=== PATIENT | male | born 1945 | race Caucasian/White ===

== ENCOUNTER → 2024-01-16 09:28 | Outpatient (REF) | payer MEDICARE, OTHER, SELFPAY ==
[2024-01-16 10:21] LABS: % Eosinophils 3.2 % (0-6); % Immature Granulocytes 0.2 % (0-0.5); % Lymphocytes 33.3 % (20.5-51.1); % Monocytes 7.3 % (1.7-9.3); Absolute Basophils 0.1 10^3/uL (0-0.2); Absolute Eosinophils 0.2 10^3/uL (0-0.7); Absolute Lymphocytes 1.7 10^3/uL (1.2-3.4); Absolute Monocytes 0.4 10^3/uL (0.1-0.6); Absolute Neutrophils 2.8 10^3/uL (1.4-6.5); Hemoglobin 9.4 g/dL (13.0-18.0); Mean Corp Hgb Conc. 34.8 g/dL (33.0-37.0); Mean Corpuscular Hgb 32.2 pg (27.0-31.0); Mean Corpuscular Volume 92.5 fL (80.0-94.0); Mean Platelet Volume 9.4 fL (7.4-10.4); Nucleated Red Blood Cells % 0 % (-); Platelet Count 338 10^3/uL (130-400); Red Blood Cell Count 2.92 10^6/uL (4.70-6.10); Red Cell Dist. Width 16.5 % (11.5-14.5)
[2024-01-16 10:48] LABS: ALT (SGPT) 24 U/L (0-50); AST (SGOT) 37 U/L (17-59); Albumin 2.7 g/dl (3.5-5.0); Alkaline Phosphatase 156 U/L (38-126); Blood Urea Nitrogen 15 mg/dl (9-20); Calcium 8.6 mg/dl (8.4-10.2); Carbon Dioxide 26 mmol/L (22-30); Chloride 101 mmol/L (98-107); Glucose 83 mg/dl (70-99); Potassium 2.9 mmol/L (3.5-5.1); Sodium 136 mmol/L (135-145); Total Bilirubin 1.7 mg/dl (0.2-1.3); Total Protein 5.7 g/dl (6.3-8.2); eGFR > 60.00
== END ==
LOC: RAD 09:28
PROVIDERS: ATTENDING PHYSICIAN Internal Medicine
DX: R13.10 Dysphagia, unspecified (principal); I10 Essential (primary) hypertension; I25.10 Atherosclerotic heart disease of native coronary artery without angina pectoris; I77.9 Disorder of arteries and arterioles, unspecified; R79.89 Other specified abnormal findings of blood chemistry
CPT/HCPCS: 36415; 74230; 80053; 85025; 92611

== ENCOUNTER 2024-01-30 13:25 | Inpatient (IN) | payer MEDICARE, OTHER, SELFPAY ==
[2024-01-30] VITALS (10 sets, daily range): BP systolic 107–124; BP diastolic 53–69; BMI 19.3; BMI 16.9
--- NOTE | 2024-01-30 09:14 | ED.GENMED ---
History of Present Illness
General
Chief Complaint: Dehydration Symptoms
Time Seen by Provider: 01/30/24 09:14
Travel History
Have you had any contact with someone who has COVID-19?: No
Do you have any symptoms of coronavirus? Fever > 100 degrees, chills, cough, shortness of breath, sore throat, loss of taste or smell, muscle aches, or headache?: No
History of Present Illness
History of Present Illness:
HPI: Family brought in patient for further evaluation with concerns for dehydration. He has had poor p.o. intake over the last several days. He did have a GI evaluation including a swallow evaluation in which there were no restrictions suggested.
He denies any pain. However, the patient has a history of dementia and is a very limited historian
EXAM:
GENERAL: Appears in no distress but he appears somewhat dehydrated
HEENT: Dry oral mucosa
CARDIOVASCULAR: Regular rate and rhythm, small deformity noted to the anterior chest wall at midline scar
PULMONARY: No respiratory distress, breathing is nonlabored, equal and clear breath sounds
ABDOMEN: Soft and nontender with no peritoneal signs, heme-negative stool but very limited amount of stools obtained
NEUROLOGIC: The patient has evidence of dementia, not oriented to month or place, strength is equal in all extremities
EXTREMITIES: Moves all extremities equally, no tenderness, no edema
PYSCHIATRIC: Very limited historian, poor insight and judgment
ED COURSE:
9:25 AM: I initially evaluated patient
NUMBER AND COMPLEXITY OF PROBLEMS ADDRESSED AT THE ENCOUNTER
� Chronic conditions affecting care: Dementia, high blood pressure, hyperlipidemia, CAD with CABG in 2015, GERD
� Acute Exacerbation and/or Progression of Chronic Illness: This is an acute problem
� Differential Diagnosis includes: Failure to thrive, MICHELLE, dehydration, electrolyte abnormality
AMOUNT AND/OR COMPLEXITY OF DATA TO BE REVIEWED AND ANALYZED
� I performed an independent evaluation of and my interpretation is:
EKG:
CT: Noncontrast CT of abdomen/pelvis is unremarkable
X-rays:
Laboratory Studies: White count normal at 7.8, hemoglobin 11.1 which is higher than prior but suspect hemoconcentrated, sodium is elevated at 156, BUN is 42 and creatinine is 1.9�this is acute
Other:
� Review of other/old records: I reviewed lab work from 01/16/2024 that showed a hemoglobin of 9.4 down from 12.7 in October 2023
� Clinical information was obtained by an independent historian: I spoke to family� and daughter at bedside
� Prescriptions/Medications Considered but not given:
� Further testing considered but not performed:
RISK OF COMPLICATIONS AND/OR MORBIDITY OR MORTALITY OF PATIENT MANAGEMENT
� Social determinants of health affecting care:
� Discussion with other providers: Hospitalist for admission 11:20 AM
� Escalation of care including admission/observation vs risk of discharge considered: The patient was given IV fluids. Even before his fluids were started, his blood pressure normalized and his heart rate was normal in the 80s.
The patient has history of dementia and is a very limited historian. He appears somewhat dehydrated. The patient has evidence of MICHELLE.
Past History
Past History
ED Past Medical History: GERD, HTN and Hypercholesterolemia
ED Past Surgical History: Cardiac
Social History
Tobacco: Non-smoker
Alcohol: Daily (4 beers/day)
Drug: None
Personal:
Living: with family
Employment: Retired
Phy Exam
Physical Exam
Physical Exam:
See HPI
Course
Orders/Labs/Results
Orders:
Orders
01/30/24 09:16
0.9% Sodium Chloride 500 ml [Nss] 500 ml IV BOLUS
01/30/24 09:29
0.9% Sodium Chloride 1000 ml [Nss] 1,000 ml IV BOLUS
01/30/24 09:32
Add On- LAB Urgent
Tests Added?: iron panel, ferritin
01/30/24 09:34
Complete Blood Count/With Diff Urgent
Comprehensive Metabolic Panel Urgent
Ferritin Urgent
Comment: ADD ON
Iron Urgent
Comment: ADD ON
01/30/24 11:12
CT Abd/pelvis Wo Iv Cont Urgent
Comment:
Reason For Exam: poor po intake; dementia; MICHELLE; cannot malcolm po
01/30/24 12:00
Dextrose 5%/0.45%Sodchl 500 ml [D5/0.45%NaCl] 500 ml IV 125 mls/hr
Abnormal Lab Results
01/30/24
09:34
RBC 3.46 L 10^6/uL
(4.70-6.10)
Hgb 11.1 L g/dL
(13.0-18.0)
Hct 34.2 L %
(39.0-52.0)
MCV 98.8 H fL
(80.0-94.0)
MCH 32.1 H pg
(27.0-31.0)
MCHC 32.5 L g/dL
(33.0-37.0)
RDW 17.5 H %
(11.5-14.5)
MPV 10.7 H fL
(7.4-10.4)
Sodium 156 H mmol/L
(135-145)
Chloride 126 H mmol/L
(98-107)
BUN 42 H mg/dl
(9-20)
Creatinine 1.9 H mg/dL
(0.7-1.3)
Glucose 103 H mg/dl
(70-99)
Ferritin 569.0 H ng/ml
(17.9-464.0)
Total Bilirubin 1.9 H mg/dl
(0.2-1.3)
ALT 57 H U/L
(0-50)
Alkaline Phosphatase 185 H U/L
(38-126)
Albumin 3.3 L g/dl
(3.5-5.0)
01/30/24 09:34
01/30/24 09:34
Vital Signs
Initial and Last Documented VS:
Initial Vital Signs
Temp Pulse BP Pulse Ox
97.4 F 107 107/68 91
01/30/24 09:04 01/30/24 09:04 01/30/24 09:04 01/30/24 09:04
Last Documented Vital Signs
Temp Pulse Resp BP Pulse Ox
97.4 F 63 15 117/53 91
01/30/24 09:04 01/30/24 11:15 01/30/24 11:15 01/30/24 11:00 01/30/24 09:04
*Critical Care Note
Total Time (30-74mins, 75-104mins- exclusive of procedures): Not Applicable
ED Attending Note
-
Portions of this chart may have been created with voice recognition software.� Occasional wrong word or��sound alike� substitutions may have occurred due to the inherent limitations of voice recognition software.
Discharge Plan
Departure
Patient Disposition: Admit
Date of Disposition: 01/30/24
Time of Disposition: 11:20
Presentation/result/management discussed w/ accepting MD/DO: Hospitalist
Discharge Problem:
MICHELLE (acute kidney injury)
Prescriptions:
No Action
aspirin 81 MG tablet,delayed release (DR/EC)
81 mg PO DAILY
allopurinol 300 MG tablet
300 mg PO DAILY
atorvastatin 40 MG tablet
80 mg PO DAILY
ammonium lactate 12 % Lotion
1 applic TOPICAL DAILY
potassium chloride 40 mEq/15 mL Liquid
40 meq PO DAILY
Referrals:
Rasta Sloan MD [Family Provider] -
Interventions
Interventions:
*Risk Screen - Suicide Last Done: 01/30/24 09:25
*General Assessment Last Done: 01/30/24 09:25
*Neglect/Abuse Screening Last Done: 01/30/24 09:25
ED- Fall Risk Assessment Last Done: 01/30/24 09:25
*ED COVID-19 Vaccine History Last Done: 01/30/24 09:09
ED- Cardiac Assessment Last Done: 01/30/24 09:25
ED- Neurological Assessment Last Done: 01/30/24 09:25
ED- Pulmonary Assessment Last Done: 01/30/24 09:25
[2024-01-30] MEDS: NSS 1000 IV (09:33)
[2024-01-30 09:51] LABS: % Basophils 0.9 % (0-2); % Eosinophils 0.5 % (0-6); % Immature Granulocytes 0.4 % (0-0.5); % Lymphocytes 26.4 % (20.5-51.1); % Monocytes 5.8 % (1.7-9.3); Absolute Basophils 0.1 10^3/uL (0-0.2); Absolute Lymphocytes 2.1 10^3/uL (1.2-3.4); Absolute Monocytes 0.5 10^3/uL (0.1-0.6); Absolute Neutrophils 5.1 10^3/uL (1.4-6.5); Hematocrit 34.2 % (39.0-52.0); Hemoglobin 11.1 g/dL (13.0-18.0); Mean Corp Hgb Conc. 32.5 g/dL (33.0-37.0); Mean Corpuscular Hgb 32.1 pg (27.0-31.0); Mean Corpuscular Volume 98.8 fL (80.0-94.0); Mean Platelet Volume 10.7 fL (7.4-10.4); Nucleated Red Blood Cells % 0 % (-); Platelet Count 242 10^3/uL (130-400); Red Blood Cell Count 3.46 10^6/uL (4.70-6.10); Red Cell Dist. Width 17.5 % (11.5-14.5); White Blood Cell Count 7.8 10^3/uL (4.8-10.8)
[2024-01-30 10:10] LABS: ALT (SGPT) 57 U/L (0-50); AST (SGOT) 47 U/L (17-59); Albumin 3.3 g/dl (3.5-5.0); Alkaline Phosphatase 185 U/L (38-126); Blood Urea Nitrogen 42 mg/dl (9-20); Calcium 9.3 mg/dl (8.4-10.2); Carbon Dioxide 24 mmol/L (22-30); Chloride 126 mmol/L (98-107); Estimated Creatinine Clearance 24 ml/min; Glucose 103 mg/dl (70-99); Iron 114 ug/dl (49-181); Potassium 3.9 mmol/L (3.5-5.1); Sodium 156 mmol/L (135-145); Total Bilirubin 1.9 mg/dl (0.2-1.3); Total Protein 6.6 g/dl (6.3-8.2); eGFR 35.22
--- NOTE | 2024-01-30 11:20 | EDRN ---
Family informed this RN pt had a US scheduled for today though unable to go as is here. This RN spoke to Dr. Rosa who said that he was ordering a CT of abdomen w/out contrast which will give more info than US r/t pt's results so far. This
RN informed family that pt to go to CT. Dr. Rosa was in thereafter to speak w/ family.
[2024-01-30] MEDS: D5/0.45%NACL 500 IV (11:51)
--- NOTE | 2024-01-30 12:46 | EDRN ---
Brenda CANNON was in to see pt for hospitalist group.
--- NOTE | 2024-01-30 12:46 | EDRN ---
Naren Bhakta PA in to see pt at this time.
--- NOTE | 2024-01-30 13:09 | EDRN ---
Dr. Alberto in room w/ pt and family.
--- NOTE | 2024-01-30 13:09 | HPS.HSE ---
Family Physician
-
Family Physician: Rasta Sloan
Chief Complaint
-
Poor oral intake and weakness
History of Present Illness
Patient is a 78 y/o male with PMH of dementia, HTN, and CAD w/ CABG in 2014 who presents with family c/o worsening PO intake x 2 days. Patient is a limited historian, and daughter provided history. Daughter states that the patient has had
weight loss and decreasing appetite for the past 6 months and has not had anything to eat or drink in the last two days. He has had minimal stool and urine output the last 2 days. She says he does not complain of abdominal pain, nausea, vomiting, or
diarrhea. and daughter say that he is usually mobile around the house without use of a cane or walker but patient has spent most of his time resting in bed the past few days. Patient has a home visit visit scheduled with palliative care for
this week.
Medical History
Past Medical History
Past Medical History: Reports Other
Additional Past Medical History:
Coronary Artery Disease
Essential Hypertension
Hyperlipidemia
Dementia
GERD
Gout
Past Surgical History: Reports Other
Additional Past Surgical History:
CABG
Appendectomy
Social History
Tobacco: Non-smoker
Living: With Family
Family History
Family History: Not pertinent
Allergies / Home Medications
Allergies reflects when Allergies were last updated in [employer] [facility].
Home Medications with original date entered in [facility]
Allergy/Medication List:
Allergies
Allergy/AdvReac Type Severity Reaction Status Date / Time
No Known Allergies Allergy Verified 01/30/24 09:12
Home Medications
allopurinol 300 mg tablet 300 mg PO DAILY Gout 08/27/14
aspirin 81 mg tablet,delayed release 81 mg PO DAILY Blood clot prevention/tx 08/27/14
atorvastatin 40 mg tablet 80 mg PO DAILY High cholesterol 07/15/20
ammonium lactate 12 % lotion 1 applic topical DAILY apply to B/L feet 01/30/24
potassium chloride 40 mEq/15 mL oral liquid 40 meq PO DAILY 01/30/24
Review of Systems
-
Unable to obtain full review of systems at this time due to: Dementia
Physical Exam
Vital Signs
Vital Signs
Temp Pulse Resp BP Pulse Ox
97.4 F 63 15 124/58 100
01/30/24 09:04 01/30/24 13:00 01/30/24 13:00 01/30/24 13:00 01/30/24 13:00
Physical Exam
General: Comfortable, Conversant, Appears Chronically Ill and Cachectic
HEENT: NormoCephalic and Anicteric
Respiratory: Clear and Non Labored Respirations
Cardiac: S1/S2 and Regular Rhythm
GI: Soft, Non Tender and Non Distended
Rectal: Deferred by Provider
Musculoskeletal: No Clubbing, No Cyanosis and No Edema
Skin: Warm and Dry
Neuro: Awake, Alert and Nonfocal/grossly intact
Laboratory Results
-
01/30/24 09:34
01/30/24 09:34
Laboratory Results
Total Bilirubin 1.9 mg/dl (0.2-1.3) H 01/30/24 09:34
AST 47 U/L (17-59) 01/30/24 09:34
ALT 57 U/L (0-50) H 01/30/24 09:34
Alkaline Phosphatase 185 U/L (38-126) H 01/30/24 09:34
Data Reviewed
-
CT Scan: Report Reviewed by me
Lab Data: Labs Reviewed by me
Impression/Plan
-
Acute Kidney Injury with Hypernatremia
-Patient with progressive decline over last 6 months, but much worse over past 1-2 weeks
-Calculated Free Water Deficit 3.2L
-Continue IVFs
-Monitor creatinine and sodium level
-Family open to discussions for possible hospice
Elevated LFTs
-CT scan with no acute pathology
-Hold statin
-Recheck in AM
-Consider further imaging if not improving
Dementia
-Family states no prior dementia work-up
-Check Head CT, vitamin b12 and folic acid
-Monitor for mood/behavior changes
Coronary Artery Disease
-Continue aspirin
Hyperlipidemia
-Hold due to elevated LFTs
DVT proph: SCDs
Code Status: DNR
[2024-01-30 15:05] LABS: Folate 2.1 ng/ml (2.76-20); Vitamin B12 737 pg/ml (239-931)
--- NOTE | 2024-01-30 16:19 | PTOTSP ---
ST Dysphagia Evaluation
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 Cog-linguistic deficits; baseline dementia
Pt received awake/alert oriented to self. Family spouse and daughter present at the bedside. HOB raised upright for PO trials of puree and thin liquids. Demo adequate oral access/containment, mild-moderately prolonged bolus manipulation and bolus
was orally cleared. Declined trials after x3 tsp of puree. Thin liquids by straw sip swallow appears min delayed. 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
report on 01/16 for further details).
Recommend
1. Continue Soft/bite-size solids (L6) and thin liquids
2. Aspiration and LATA/reflux precautions
3. Small bites, moisten solids with gravy/sauce, small/single sips and slow rate
4. Whole/single pills with sips of water or placed in apple sauce
5. AIRPLANE DISPATCHER following; consider palliative guided conversation with pt/family re: goals of care
[2024-01-30] MEDS: D5/0.45%NACL 1000 IV ×2 (16:50→23:04)
[2024-01-31 06:00] VITALS: BMI 16.8
[2024-01-31 06:56] LABS: Hematocrit 28.1 % (39.0-52.0); Hemoglobin 9.1 g/dL (13.0-18.0); Mean Corp Hgb Conc. 32.4 g/dL (33.0-37.0); Mean Corpuscular Hgb 31.8 pg (27.0-31.0); Mean Corpuscular Volume 98.3 fL (80.0-94.0); Mean Platelet Volume 10.2 fL (7.4-10.4); Platelet Count 168 10^3/uL (130-400); Red Blood Cell Count 2.86 10^6/uL (4.70-6.10); White Blood Cell Count 6.8 10^3/uL (4.8-10.8)
[2024-01-31 07:18] LABS: ALT (SGPT) 37 U/L (0-50); AST (SGOT) 31 U/L (17-59); Albumin 2.5 g/dl (3.5-5.0); Alkaline Phosphatase 124 U/L (38-126); Blood Urea Nitrogen 37 mg/dl (9-20); Calcium 8.8 mg/dl (8.4-10.2); Carbon Dioxide 26 mmol/L (22-30); Chloride 124 mmol/L (98-107); Estimated Creatinine Clearance 30 ml/min; Glucose 111 mg/dl (70-99); Magnesium 2.4 mg/dl (1.6-2.3); Potassium 3.4 mmol/L (3.5-5.1); Sodium 156 mmol/L (135-145); Total Bilirubin 1.2 mg/dl (0.2-1.3); Total Protein 5.5 g/dl (6.3-8.2); eGFR 50.81
[2024-01-31] MEDS: ASPIR LOW (ENTERIC COATED) 81 MG PO (07:39)
[2024-01-31] MEDS: D5/0.45%NACL 1000 IV ×2 (07:39→22:32)
[2024-01-31] MEDS: KCL ELIXIR 40 MEQ PO (07:39)
[2024-01-31 07:44] VITALS: BP 123/53
[2024-01-31 07:47] LABS: TSH Reflex To Free T4 1.94 uIU/ml (0.47-4.68)
[2024-01-31 10:10] VITALS: BP 112/60; PULSE 69
[2024-01-31 10:30] VITALS: BP 112/60; PULSE 69; O2SAT 100
[2024-01-31] MEDS: KCL 40 MEQ PO (11:35)
--- NOTE | 2024-01-31 11:56 | W.PN.HOSP.TC ---
Today's Communication/Plan
-
Continue with IV fluids
Follow BMP
Check bladder scan
Check urine analysis
Assessment / Plan
Assessment / Plan
Acute Kidney Injury with Hypernatremia
-Patient with progressive decline over last 6 months, but much worse over past 1-2 weeks
-Calculated Free Water Deficit 3.2L
-Continue IVFs
-Monitor creatinine and sodium level
-Family open to discussions for possible hospice
-Improving creatinine. Continue with the fluids and follow sodium.
-Continue with modified diet per speech.
-Await urine analysis to rule out any UTI accounting for his change in status. Chest x-ray without evidence of pneumonia. CT head without evidence of acute intracranial abnormality.
-If all turnout to be negative for any acute medical issues this may be just progression of his dementia and will address goals of care
Elevated LFTs
-CT scan with no acute pathology
-Hold statin
-Normalized with hydration unclear if secondary to any ischemic issue.
Dementia
-Family states no prior dementia work-up
-Check vitamin b12 and folic acid
-Monitor for mood/behavior changes
Coronary Artery Disease
-Continue aspirin
Hyperlipidemia
-Hold due to elevated LFTs
DVT proph: SCDs
Code Status: DNR
Discussed with at bedside and updated current clinical and treatment plan
Anticipated Discharge: 24 - 48 hours
Subjective/Interval History
-
Date of Service: January 31, 2024
Sitting in the chair.
Voicing no specific complaints.
Denies nausea or vomiting. Still no appetite.
at bedside brings to my attention that he seems to be bothered with upper right lip pain. He is waiting to see his dentist for removal of all teeth and denture fixtures.
Overnight had urinary retention requiring straight cath.
Objective Data
-
Labs:
Laboratory Results
03/05/24
06:33
WBC 6.8
Hgb 9.1 L
Hct 28.1 L
Plt Count 168 D
Sodium 156 H
Potassium 3.4 L
Chloride 124 H
Carbon Dioxide 26
BUN 37 H
Creatinine 1.4 H
Glucose 111 H
Calcium 8.8
Total Bilirubin 1.2
AST 31
ALT 37
Alkaline Phosphatase 124
Vital Signs:
Vital Signs
Temp Pulse Resp BP Pulse Ox
97.3 F 57 12 123/53 100
01/31/24 07:44 01/31/24 07:44 01/31/24 07:44 01/31/24 07:44 01/31/24 07:44
I&O
01/30/24 01/31/24 02/01/24
06:59 06:59 06:59
Intake Total 810 / 810
Output Total 601 / 601
Balance 209 / 209
Review of Systems
-
Constitutional: Denies Fever
EENT: Denies Sore Throat
Respiratory: Denies Trouble Breathing
Cardiac: Denies Chest Pain
Neuro: Denies Dizzy
Physical Exam
-
General: No Apparent Distress
HEENT: Moist Mucous Membranes and Other (single right upper remnant tooth but no tenderness on its manipulation ;no lip swelling )
Respiratory: Clear to Auscultation
Cardiac: Regular Rhythm and S1/S2
GI: Soft and Nontender
Neuro: Awake, Alert and Oriented
Psych: Calm and Confused; Negative Agitated
Data Reviewed
-
Labs: Labs Reviewed by me
--- NOTE | 2024-01-31 12:40 | CM ---
Reviewed chart, met with patient's family who was at bedside to obtain information for assessment. Patient's stated that patient lives with her in a split level home with no steps to enter. She described patient as dependent on her for all his
ADLs, personal care, dressing and bathing as well as toileting. She does the bow stapler, cooks, cleans and does the laundry. Both of her children live close and are supportive and patient's stated that she has good neighbors that assist
her with what she needs.
Patient has a grab bar in the shower but mainly spongebathes.
Patient's is driving patient to all of his appointments and she does all of the shopping.
Patient has had VN in the past through [facility] and if indicated again would select . He is current with Palliative Care through and patient's confirmed that she advised them of the hospitalization.
Patient has never been to a SNF and they do not want for him to transfer to one.
If indicated patient's stated that she would like for VN.
Patient has a prescription plan and uses the [facility] on [address]
His PCP is Dr. Rasta Sloan.
Plan: Case management will continue to follow and assist with discharge planning. Patient's and daughter would like for patient to return home when medically cleared with Palliative and VN if indicated.
[2024-01-31 14:37] VITALS: BP 110/55
[2024-01-31 15:04] LABS: Urine Albumin Trace (Neg - Trace); Urine Bilirubin 1+ (Negative); Urine Character Clear (Clear); Urine Color Yellow; Urine Glucose Negative (Negative); Urine Ketone Trace (Negative); Urine Leukocyte Trace (Negative); Urine Nitrite Negative (Negative); Urine Occult Blood Negative (Negative); Urine Specific Gravity 1.025 (<1.030); Urine Urobilinogen 1+ (Neg - 1+)
[2024-01-31 15:06] VITALS: BMI 16.8
[2024-01-31 15:26] LABS: Urine Red Blood Cell 0-2 /HPF (0-2)
[2024-01-31 15:27] LABS: Urine Bacteria Many (Negative)
[2024-01-31 23:03] VITALS: BP 127/62
--- NOTE | 2024-02-01 01:47 | PTCARENOTE ---
Pt became agitated and trying to leave the room. FRANCISCO Bill notified and orders for stat one time IM Zyprexa added. Upon admission pt now asleep. Zyprexa not given. Med sitter in place. Will continue plan of care.
[2024-02-01 06:00] VITALS: BMI 18.3
[2024-02-01] MEDS: D5/0.45%NACL 1000 IV ×2 (06:30→09:03)
[2024-02-01 07:00] VITALS: BP 123/61
[2024-02-01] MEDS: ASPIR LOW (ENTERIC COATED) 81 MG PO (08:59)
[2024-02-01] MEDS: KCL ELIXIR 40 MEQ PO (08:59)
[2024-02-01 09:35] LABS: Hematocrit 28.8 % (39.0-52.0); Hemoglobin 9.3 g/dL (13.0-18.0); Mean Corp Hgb Conc. 32.3 g/dL (33.0-37.0); Mean Corpuscular Hgb 31.8 pg (27.0-31.0); Mean Corpuscular Volume 98.6 fL (80.0-94.0); Mean Platelet Volume 10.6 fL (7.4-10.4); Platelet Count 149 10^3/uL (130-400); Red Blood Cell Count 2.92 10^6/uL (4.70-6.10); Red Cell Dist. Width 16.6 % (11.5-14.5); White Blood Cell Count 6.6 10^3/uL (4.8-10.8)
--- NOTE | 2024-02-01 10:27 | CHAP ---
Msgr. Josse Archer of [facility] in [place] anointed Mr. Pham and gave him Holy Communion. Time uncertain.
[2024-02-01 11:10] LABS: Blood Urea Nitrogen 22 mg/dl (9-20); Calcium 8.5 mg/dl (8.4-10.2); Carbon Dioxide 18 mmol/L (22-30); Chloride 122 mmol/L (98-107); Estimated Creatinine Clearance 45 ml/min; Glucose 99 mg/dl (70-99); Potassium 4.4 mmol/L (3.5-5.1); Sodium 147 mmol/L (135-145); eGFR > 60.00
--- NOTE | 2024-02-01 13:39 | PTOTSP ---
SPEECH THERAPY SWALLOW FOLLOW-UP TREATMENT:
Patient continues to exhibit clinical signs of oropharyngeal dysphagia, likely chronic related to dementia. Patient with very low p.o. intake at this time; family reporting difficulty with solid textures. Recommend diet downgrade to IDDSI Level 5:
Minced and Moist, continue thin liquids. NO STRAW. Speech therapy to continue to follow, assess diet tolerance and modify as appropriate, provide continued education regarding aspiration risks and precautions, and provide diagnostic swallow therapy
as appropriate.
RECOMMEND:
1) Diet downgrade to IDDSI Level 5 Minced and Moist, continue thin liquids
2) NO STRAW
3) Medications whole or crushed in puree
4) Aspiration precautions: upright positioning; checking for pocketing prior to laying down and after eating; 1:1 assist with meals to encourage p.o. intake; only feed when patient is awake/alert; ensure patient swallows prior to next bite; small
single sips only; slow rate of intake; NO STRAW
5) Speech Therapy to continue to follow
--- NOTE | 2024-02-01 14:12 | W.PN.HOSP.TC ---
Today's Communication/Plan
-
Change IV fluid to D5 water for [address] a Mendez catheter
Consult case management for hospice evaluation.
Assessment / Plan
Assessment / Plan
Acute Kidney Injury with Hypernatremia
-Patient with progressive decline over last 6 months, but much worse over past 1-2 weeks
- Resolved MICHELLE and improving Na with fluids
- Continue with modified diet per speech.
- UCX neg . Chest x-ray without evidence of pneumonia. CT head without evidence of acute intracranial abnormality.
- Afebrile ,nontoxic, no leukocytosis.
- so far eval is neg for acute immediate medical issues and this may be just progression of his dementia
- Family as well noted general decline over months . Pt also has declined testing as OP for decline.
- They want him to be comfortable .-Family open to discussions for possible hospice
Elevated LFTs
-CT scan with no acute pathology
-Hold statin
-Normalized with hydration unclear if secondary to any ischemic issue.
Urinary retention -suspect sec to BPH. Will leave mendez in as he is requiring freq straight cath. Depending on goals will make OP uro referral
Dementia
-Family states no prior dementia work-up
- vitamin b12 is ok and folic acid low -will replace but doubt cause of his clinical status
-Monitor for mood/behavior changes
Coronary Artery Disease
-Continue aspirin
Hyperlipidemia
-Hold due to elevated LFTs
DVT proph: SCDs
Code Status: DNR
Discussed with and daughter at bedside
Anticipated Discharge: Within 24 hours
Subjective/Interval History
-
Date of Service: February 01, 2024
He was confused last night. Did not get much sleep. According to he has sundowning issues at home as well.
Is still not eating much. Appetite remains poor.
Objective Data
-
Labs:
Laboratory Results
02/01/24
08:39
WBC 6.6
Hgb 9.3 L
Hct 28.8 L
Plt Count 149
Sodium 147 H D
Potassium 4.4 D
Chloride 122 H
Carbon Dioxide 18 L
BUN 22 H
Creatinine 1.0
Glucose 99
Calcium 8.5
Vital Signs:
Vital Signs
Temp Pulse Resp BP Pulse Ox
97.9 F 71 18 123/61 100
02/01/24 07:00 02/01/24 07:00 02/01/24 07:00 02/01/24 07:00 02/01/24 07:00
I&O
01/31/24 02/01/24 02/02/24
06:59 06:59 06:59
Intake Total 810 / 810 240 / 240
Output Total 601 / 601 1200 / 1200 350 / 350
Balance 209 / 209 -960 / -960 -350 / -350
Review of Systems
-
Unable to obtain full review of systems at this time due to: Dementia (plus hard of hearing)
Physical Exam
-
General: No Apparent Distress
HEENT: Moist Mucous Membranes
Respiratory: Clear to Auscultation (anteriorly)
Cardiac: Regular Rhythm and S1/S2
GI: Soft
Neuro: Other (sleeping but awakable .oriented to self and person)
Psych: Calm and Confused; Negative Agitated
Data Reviewed
-
Labs: Labs Reviewed by me
--- NOTE | 2024-02-01 14:24 | PN.CDI ---
CDI
- -
CDI:
Physician Documentation Request
Admit Date: 01/30/24 13:25
Dear Doctor Remy,
Please review the following and provide your response in the progress notes.
Clinical Indicators:
Pt admitted with MICHELLE/Hypernatremia
Documented in the record Cachexia , BMI 18.3
Nutrition consult 01/30, ' Spoke with pts and daughter (who is a dietitian), they state pt with poor intakes for > 1 month, eating very little, may go a day without eating. Pt also with significant weight loss. ..Pts weight previous hospital
visit listed as 150 lbs 10/28/23 reflective of 40 lb (27%) weight loss in 3 1/2 months significant. ...With weight loss of > 10% in 6 months and < 75% estimated needs > 1 month pt meets AND/ASPEN criteria for severe protein calorie malnutrition of
chronic illness. Pts family does not want a feeding tube and does not like supplements. Pt may benefit from an addition of an appetite stimulant. '
Based on the information, which of the following most accurately represents the patient's nutritional status?
Severe Protein Calorie Malnutrition
Other (please specify)
Unable to determine
[place] Criteria ([employer] Hospitalist 2017)
2 or more criteria must be present for either
non severe or severe malnutrition
Note that the criteria differs related to the
presence of an acute or chronic illness
Acute Illness Chronic Illness
Energy Intake Non Severe: <75% for >7 days Non Severe: <75% for >1 month
Severe: <50% for >5 days Severe: <75% for >1 month
Weight Loss Non Severe: 1-2% over 1 week Non Severe: 5% over 1 month
5% over 1 month 7.5% over 3 months
7.5% over 3 months 10% over 6 months
1 year N/A 20% over 1 year
Severe: >2% over 1 week Severe: >5% over 1 month
>5% over 1 month >7.5% over 3 months
>7.5% over 3 months >10% over 6 months
1 year N/A >20% over 1 year
Body Fat Non Severe: Mild Decrease Non Severe: Mild Loss
Severe: Moderate Decrease Severe: Severe Loss
Muscle Mass Non Severe: Mild Decrease Non Severe: Mild Loss
Severe: Moderate Decrease Severe: Severe Loss
Fluid Accumulation Non Severe: Mild Accumulation Non Severe: Mild Accumulation
Severe: Moderate to severe Severe: Moderate to severe
accumulation accumulation
Reduced Topology Teacher Strength Non Severe: N/A Non Severe: N/A
Severe: Measurably reduced Severe: Measurably reduced
Use of terms such as suspected, likely, concern for, or probable (associated with a specific diagnosis that is being evaluated, monitored, or treated as if it exists) are acceptable and can be coded in the inpatient setting, when documented at the
time of discharge.
Thank you,
Alee Stewart RN
CDI Specialist
[employer]
Please use your independent medical judgment in providing your response.
[2024-02-01] MEDS: D5W 1000 IV (15:27)
[2024-02-01 15:30] VITALS: BP 119/58
[2024-02-01] MEDS: REMERON 7.5 MG PO (21:50)
[2024-02-01 23:00] VITALS: BP 137/72
[2024-02-02 06:00] VITALS: BMI 17.6
[2024-02-02 06:57] LABS: Hematocrit 30.6 % (39.0-52.0); Hemoglobin 10.3 g/dL (13.0-18.0); Mean Corp Hgb Conc. 33.7 g/dL (33.0-37.0); Mean Platelet Volume 10.1 fL (7.4-10.4); Platelet Count 152 10^3/uL (130-400); Red Blood Cell Count 3.22 10^6/uL (4.70-6.10); White Blood Cell Count 7.3 10^3/uL (4.8-10.8)
[2024-02-02 07:00] VITALS: BP 130/86
[2024-02-02 07:29] LABS: Blood Urea Nitrogen 17 mg/dl (9-20); Calcium 8.5 mg/dl (8.4-10.2); Carbon Dioxide 23 mmol/L (22-30); Chloride 110 mmol/L (98-107); Estimated Creatinine Clearance 55 ml/min; Glucose 83 mg/dl (70-99); Potassium 4.1 mmol/L (3.5-5.1); Sodium 140 mmol/L (135-145); eGFR > 60.00
[2024-02-02] MEDS: ASPIR LOW (ENTERIC COATED) 81 MG PO (07:46)
[2024-02-02] MEDS: KCL ELIXIR 40 MEQ PO (07:46)
--- NOTE | 2024-02-02 10:54 | W.PN.HOSP.TC ---
Today's Communication/Plan
-
Hospice eval
DC planning
Assessment / Plan
Assessment / Plan
Acute Kidney Injury with Hypernatremia
-Patient with progressive decline over last 6 months, but much worse over past 1-2 weeks
- Resolved MICHELLE and Normalized Na with fluids
- Continue with modified diet per speech.
- UCX neg . Chest x-ray without evidence of pneumonia. CT head without evidence of acute intracranial abnormality.
- Afebrile ,nontoxic, no leukocytosis.
- so far eval is neg for acute immediate medical issues and this may be just progression of his dementia . Despite correction of metabolic disturbances he is not eating much. I suspect this is related to his progressive dementia.
- Family as well noted general decline over months . Pt also has declined testing as OP for decline.
- They want him to be comfortable .-Family open to discussions for possible hospice
- Hospice consulted
Elevated LFTs
-CT scan with no acute pathology
-Hold statin
-Normalized with hydration unclear if secondary to any ischemic issue.
Urinary retention -suspect sec to BPH. Will leave mendez in as he is requiring freq straight cath. Depending on goals will make OP uro referral
Moderate macrocytic anemia -went over the family regarding anemia and workup would entitile more testing .I dont know if anemia is manifestation of other condition or nutritional alone.
Family not sure if he wants to go through testings which he had declined in past for other testing indications.
Dementia
-Family states no prior dementia work-up
- vitamin b12 is ok and folic acid low -will replace but doubt cause of his clinical status
-Monitor for mood/behavior changes
Coronary Artery Disease
-Continue aspirin
Hyperlipidemia
-Hold due to elevated LFTs
DVT proph: SCDs
Code Status: DNR
Discussed with at bedside .
Await hospice discussions.
Anticipated Discharge: Within 24 hours
Subjective/Interval History
-
Date of Service: February 02, 2024
Had few more bites for breakfast.
Is alert . Denies pain or SOB .
No abdo pain ,N/V but no appetite.
Objective Data
-
Labs:
Laboratory Results
02/02/24
06:28
WBC 7.3
Hgb 10.3 L
Hct 30.6 L
Plt Count 152
Sodium 140
Potassium 4.1
Chloride 110 H
Carbon Dioxide 23
BUN 17
Creatinine 0.8
Glucose 83
Calcium 8.5
Vital Signs:
Vital Signs
Temp Pulse Resp BP Pulse Ox
97.3 F 79 18 130/86 97
02/02/24 07:00 02/02/24 07:00 02/02/24 07:00 02/02/24 07:00 02/02/24 07:45
I&O
02/01/24 02/02/24 02/03/24
06:59 06:59 06:59
Intake Total 240 / 240 340 / 340
Output Total 1200 / 1200 1400 / 1400
Balance -960 / -960 -1060 / -1060
Review of Systems
-
Unable to obtain full review of systems at this time due to: Dementia
Physical Exam
-
General: No Apparent Distress
HEENT: Moist Mucous Membranes
Respiratory: Clear to Auscultation (ant)
Cardiac: Regular Rhythm
GI: Soft
Neuro: Awake and Alert
Psych: Calm and Confused; Negative Agitated
Data Reviewed
-
Labs: Labs Reviewed by me
--- NOTE | 2024-02-02 10:57 | CM ---
Received call from Vidhi at [facility] who requested referral be sent as she spoke with patient's family who is opting for hospice and their agency. Referral faxed through [facility]. Will await response from [facility].
Plan: Case management will continue to follow and assist with discharge planning. Home with hospice.
[2024-02-02 15:00] VITALS: BP 99/60
[2024-02-02] MEDS: REMERON 7.5 MG PO (22:19)
[2024-02-02 23:00] VITALS: BP 119/64
[2024-02-03 05:03] VITALS: BMI 17.2
[2024-02-03 07:00] VITALS: BP 122/64
[2024-02-03] MEDS: KCL ELIXIR 40 MEQ PO (09:04)
[2024-02-03] MEDS: ASPIR LOW (ENTERIC COATED) 81 MG PO (09:04)
--- NOTE | 2024-02-03 10:13 | CM ---
Addendum entered by DONNIE Potts 02/03/24 15:26:
Spoke with patient's family who confirmed receipt of equipment. Verified home address where patient is going. Provided transfer sheet, OOHDNR signed by attending and Med necessity to [facility] community liaison officer who set patient up for ambulance transfer home.
Spoke with Vidhi from [facility] who confirmed that patient's should call her upon leaving acute care so they know what time to be there.
Original Note:
Placed a call to [facility] and spoke with Vidhi, who confirmed that they will be out today to provide equipment. Will update family.
Plan: Case management will continue to follow and assist with discharge planning. Home on hospice.
--- NOTE | 2024-02-03 11:49 | W.PN.HOSP.TC ---
Addendum entered and electronically signed by Freeman Alberto MD 02/05/24 16:14:
pt with poor intakes for > 1 month, eating very little, may go a day without eating.� Pt also with significant weight loss. ..Pts weight previous hospital visit listed as 150 lbs 10/28/23 reflective of�40 lb (27%) weight loss in 3 1/2 months
significant. ...With weight loss of > 10% in 6 months and < 75% estimated needs > 1 month pt meets AND/ASPEN criteria for severe protein calorie malnutrition of chronic illness.
Original Note:
Today's Communication/Plan
-
DC
Assessment / Plan
Assessment / Plan
Acute Kidney Injury with Hypernatremia
-Patient with progressive decline over last 6 months, but much worse over past 1-2 weeks
- Resolved MICHELLE and Normalized Na with fluids
- Continue with modified diet per speech.
- UCX neg . Chest x-ray without evidence of pneumonia. CT head without evidence of acute intracranial abnormality.
- Afebrile ,nontoxic, no leukocytosis.
- so far eval is neg for acute immediate medical issues and this may be just progression of his dementia . Despite correction of metabolic disturbances he is not eating much. I suspect this is related to his progressive dementia.
- Family as well noted general decline over months . Pt also has declined testing as OP for decline.
- They want him to be comfortable .-Family open to discussions for possible hospice
- Hospice consulted and family choose [facility] .
- Await equipment delivery.
Elevated LFTs
-CT scan with no acute pathology
-Hold statin
-Normalized with hydration unclear if secondary to any ischemic issue.
Urinary retention -suspect sec to BPH. Will leave mendez in as he is going home on hospice.
Moderate macrocytic anemia -went over the family regarding anemia and workup would entitile more testing .I dont know if anemia is manifestation of other condition or nutritional alone.
Family not sure if he wants to go through testings which he had declined in past for other testing indications.
Dementia
-Family states no prior dementia work-up
- vitamin b12 is ok and folic acid low -will replace but doubt cause of his clinical status
-Monitor for mood/behavior changes
Coronary Artery Disease
-Continue aspirin
Hyperlipidemia
-Hold due to elevated LFTs
DVT proph: SCDs
Code Status: DNR
Discussed with daughter and at bedside again today. Goals remain comfort as a goal. They have chosen hospice at home.
Will discharge him today on hospice once the equipment is ready.
More than 30 minutes spent in discharge including
Final examination of the patient
Summarizing hospital stay
Instructions for continuing care to all relevant caregivers
Preparation of discharge records, prescriptions, and referral forms
Total time spent (in minutes):32
Anticipated Discharge: Today
Subjective/Interval History
-
Date of Service: February 03, 2024
Patient is sleepy and arousable to painful stimuli.
Has been sleeping most of the day today per Family at bedside
Objective Data
-
Vital Signs:
Vital Signs
Temp Pulse Resp BP Pulse Ox
97.4 F 78 17 122/64 100
02/02/24 23:00 02/03/24 07:00 02/03/24 07:00 02/03/24 07:00 02/03/24 07:00
I&O
02/02/24 02/03/24 02/04/24
06:59 06:59 06:59
Intake Total 340 / 340 100 / 100
Output Total 1400 / 1400 900 / 900
Balance -1060 / -1060 -800 / -800
Review of Systems
-
Unable to obtain full review of systems at this time due to: Dementia
Physical Exam
-
General: No Apparent Distress and Comfortable
Respiratory: Non Labored Respirations; Negative Accessory Resp Muscle Use
Neuro: Negative Awake or Alert
Psych: Calm
--- NOTE | 2024-02-03 11:54 | W.DS.TRANS ---
DC Summary - [facility]
-
Discharge Instructions:
Discharge Diagnosis/Procedures Progressive dementia
Diet Regular
Activity As tolerated
Driving Restrictions No driving
Bathing Restrictions None
Other Services Hospice
Instructions:
Stand-Alone Forms:
Changes to Home Medications: Yes
Discharge Medications:
DC Medications w/original date entered in [employer]
allopurinol 300 mg tablet 300 mg PO DAILY Gout 08/27/14
aspirin 81 mg tablet,delayed release 81 mg PO DAILY Blood clot prevention/tx 08/27/14
ammonium lactate 12 % lotion 1 applic topical DAILY apply to B/L feet 01/30/24
potassium chloride 40 mEq/15 mL oral liquid 40 meq PO DAILY Electrolyte Repletion 01/30/24
acetaminophen 325 mg tablet 650 mg PO Q4HPRN PRN mild pain/ fever>100.5F #1 tab 02/03/24
mirtazapine 7.5 mg tablet 7.5 mg PO HS #30 tabs 02/03/24
Home Medication Changes
New med - Mirtazepine
Pending Results: No
[2024-02-03 15:00] VITALS: BP 91/55
[2024-02-03] MEDS: MORPHINE SULFATE 1 MG IV (17:06)
== END 2024-02-03 20:21 | disposition hospice, home (50) | DRG 682 ==
LOC: 3 WEST ACU 13:25
PROVIDERS: Physician Assistant Medical; ADMITTING PHYSICIAN Internal Medicine; EMERGENCY PHYSICIAN Emergency Medicine; FAMILY PHYSICIAN Internal Medicine Geriatric Medicine
DX: N17.9 Acute kidney failure, unspecified (principal); E43 Unspecified severe protein-calorie malnutrition; E87.0 Hyperosmolality and hypernatremia; Z68.1 Body mass index [BMI] 19.9 or less, adult; Z51.5 Encounter for palliative care; F03.90 Unspecified dementia, unspecified severity, without behavioral disturbance, psychotic disturbance, mood disturbance, and anxiety; I25.10 Atherosclerotic heart disease of native coronary artery without angina pectoris; E78.00 Pure hypercholesterolemia, unspecified; Z66 Do not resuscitate
CPT/HCPCS: 70450; 71046; 74176; 80048; 80053; 81003; 81015; 82607; 82728; 82746; 83540; 83735; 84443; 85025; 85027; 87086; 92526; 92610; 96360; 97163; 97167; 99285; J2358